=== PATIENT | female | born 1980 | race African-American/Black ===

== ENCOUNTER 2017-11-13 12:15 | Emergency (ER) | payer MEDICAID ==
[~2017-11-13] VITALS: Ht 167.6 cm; Wt 132.0 kg
[2017-11-13 12:22] VITALS: BP 147/98
[2017-11-13] MEDS ORDERED: PNV1TABL76 PO (12:24)
[2017-11-13] MEDS ORDERED: ACETAMINOPHEN 325MG TABLET PO ONE (12:45)
[2017-11-13] MEDS ORDERED: IBUPROFEN 800MG TABLET PO ONE (12:45)
== END 2017-11-13 14:09 | disposition home or self-care (01) ==
LOC: ER 13:44
DX: R10.9 Unspecified abdominal pain (principal); R42 Dizziness and giddiness; R51 Headache; D64.9 Anemia, unspecified; V43.62XA Car passenger injured in collision with other type car in traffic accident, initial encounter; Y93.89 Activity, other specified; Y99.8 Other external cause status; Y92.410 Unspecified street and highway as the place of occurrence of the external cause; Z87.891 Personal history of nicotine dependence
CPT/HCPCS: 81025; 99282

== ENCOUNTER 2019-03-14 17:08 | Emergency (ER) | payer MEDICAID ==
[~2019-03-14] VITALS: Ht 170.2 cm; Wt 137.0 kg
[~2019-03-14 17:08] MED LIST: PNV1TABL76 PO
[2019-03-14 23:03] LABS: CLARITY URINE CLOUDY (CLEAR); COLOR URINE YELLOW (YELLOW); KETONES URINE TRACE (NEGATIVE); LEUKOCYTE ESTERASE URINE 1+ (NEGATIVE); NITRITE URINE NEGATIVE (NEGATIVE); OCCULT BLOOD URINE 3+ (NEGATIVE); PROTEIN URINE TRACE (NEGATIVE); SPECIFIC GRAVITY URINE 1.031 (1.005-1.030); UROBILINOGEN URINE 0.2 E.U./dL (0.2-1.0)
[2019-03-14] MEDS ORDERED: KETOROLAC 60MG/2ML VIAL IM ONE (23:15)
[2019-03-14 23:21] LABS: BASOPHILS % 0.4 % (0.0-2.0); EOSINOPHILS % 2.5 % (0.0-5.0); HEMATOCRIT. 34.2 % (36.0-48.0); HEMOGLOBIN. 10.8 g/dL (12.0-16.0); LYMPHOCYTES % 29.3 % (20.0-50.0); MEAN CORPUSCULAR HEMOGLOBIN 24.4 pg (28.0-32.0); MEAN PLATELET VOLUME 7.5 fl (7.4-10.4); MONOCYTES % 6.3 % (2.0-8.0); NEUTROPHILS % 61.5 % (40.0-76.0); PLATELET 325 x1000/uL (130-400); RED BLOOD CELL COUNT 4.44 mill/uL (4.2-5.4); RED CELL DISTRIBUTION WIDTH 16.5 % (11.6-14.6)
[2019-03-14 23:27] LABS: CHLORIDE 109 mEq/L (98-107)
[2019-03-15 00:32] VITALS: BP 138/99
== END 2019-03-15 00:34 | disposition home or self-care (01) ==
LOC: ER 17:08
DX: D25.9 Leiomyoma of uterus, unspecified (principal); N92.0 Excessive and frequent menstruation with regular cycle; D64.9 Anemia, unspecified
CPT/HCPCS: 36415; 80048; 81003; 81025; 85025; 96372; 99283; J1885

== ENCOUNTER 2021-07-11 15:15 | Emergency (ER) | payer MEDICAID ==
[~2021-07-11] VITALS: Ht 170.2 cm; Wt 145.0 kg
[2021-07-11] MEDS ORDERED: ACETAMINOPHEN 325MG TABLET PO ONE (17:00)
[2021-07-11] MEDS ORDERED: BACITRACIN ZINC OINT UDPKT TOP ONE (17:00)
[2021-07-11] MEDS ORDERED: IBUPROFEN 400MG TABLET PO ONE (17:00)
[2021-07-11] MEDS ORDERED: TETANUS, DIPHTHERIA, PERTUSSIS VAC/PF 0.5ML (>7YR OLD) IM ONE (17:30)
[2021-07-11 17:36] VITALS: BP 143/97
[2021-07-11 17:56] LABS: CLARITY URINE CLOUDY (CLEAR); COLOR URINE YELLOW (YELLOW); KETONES URINE TRACE (NEGATIVE); LEUKOCYTE ESTERASE URINE 2+ (NEGATIVE); NITRITE URINE NEGATIVE (NEGATIVE); OCCULT BLOOD URINE NEGATIVE (NEGATIVE); PH URINE 5.5 (4.5-8.0); PROTEIN URINE TRACE (NEGATIVE); SPECIFIC GRAVITY URINE 1.027 (1.005-1.030); UROBILINOGEN URINE 0.2 E.U./dL (0.2-1.0)
[2021-07-11] MEDS ORDERED: NITR-87 MT (18:43)
[2021-07-11] MEDS ORDERED: ACET-2708 MT (18:43)
== END 2021-07-11 18:53 | disposition home or self-care (01) ==
LOC: ER 15:15
DX: M25.572 Pain in left ankle and joints of left foot (principal); N30.00 Acute cystitis without hematuria; W22.09XA Striking against other stationary object, initial encounter; Y93.89 Activity, other specified; Y92.018 Other place in single-family (private) house as the place of occurrence of the external cause
CPT/HCPCS: 73610; 81003; 81025; 87186; 90471; 90715; 99284